=== PATIENT | female | born 1945 | race Caucasian/White ===

== ENCOUNTER 2021-12-12 11:16 | Outpatient (REF) | payer MEDICARE, MEDICAID, SELFPAY ==
--- NOTE | ~2021-12-12 | XR_ITS ---
EXAMINATION: XR ANKLE AND FOOT, LEFT CLINICAL INFORMATION: Sprain of unspecified ligament of left ankle. COMPARISON: None TECHNIQUE: 3 views of the left foot and 3 views of the left ankle. XR/XR foot LT min 3V FINDINGS/IMPRESSION: There is a large Achilles enthesophyte with chronic appearing avulsion at the insertion site on the calcaneal tuberosity. There is some soft tissue swelling surrounding the the enthesophyte. The bones are diffusely demineralized. The ankle mortise does appear intact. There is no joint effusion visualized.
--- NOTE | ~2021-12-12 | XR_ITS ---
EXAMINATION: XR ANKLE AND FOOT, LEFT CLINICAL INFORMATION: Sprain of unspecified ligament of left ankle. COMPARISON: None TECHNIQUE: 3 views of the left foot and 3 views of the left ankle. XR/XR ankle LT 2V FINDINGS/IMPRESSION: There is a large Achilles enthesophyte with chronic appearing avulsion at the insertion site on the calcaneal tuberosity. There is some soft tissue swelling surrounding the the enthesophyte. The bones are diffusely demineralized. The ankle mortise does appear intact. There is no joint effusion visualized.
== END 2021-12-12 11:17 | disposition home or self-care (01) ==
LOC: HO.HMGCX 11:16
PROVIDERS: Visit Provider Internal Medicine
DX: S93.402A Sprain of unspecified ligament of left ankle, initial encounter (principal)
CPT/HCPCS: 73600; 73630

== ENCOUNTER 2022-11-01 21:08 | Emergency (ER) | payer MEDICARE, MEDICAID, SELFPAY ==
--- NOTE | 2022-11-01 | ECG_ITS ---
Test Reason : CHF Blood Pressure : / mmHG Vent. Rate : 080 BPM Atrial Rate : 326 BPM P-R Int : 000 ms QRS Dur : 120 ms QT Int : 432 ms P-R-T Axes : 000 109 -60 degrees QTc Int : 498 ms Artifact in tracing Ventricular-paced rhythm Abnormal ECG When compared with ECG of 19-OCT-2019 12:45, Electronic ventricular pacemaker has replaced Sinus rhythm Referred By: Generic ED Physician Electronically Signed By:YANA WYATT
--- NOTE | ~2022-11-01 | XR_ITS ---
EXAMINATION: XR FOOT, RIGHT CLINICAL INFORMATION: Fracture COMPARISON: None available. TECHNIQUE: AP, lateral, and oblique views of the right foot. FINDINGS: There is diffuse soft tissue swelling involving the right foot, especially on the dorsum. No joint effusion is seen. Flexion deformities are present at the toes. Generalized bony demineralization is seen. No fractures are identified. XR/XR foot RT 2V IMPRESSION: Soft tissue swelling but no fractures are seen.
[2022-11-01 21:24] VITALS: BP 156/74; PULSE 80; RESP 16; O2SAT 97; BMI 25.0
--- NOTE | 2022-11-01 21:36 | ED.EXTPRO ---
HPI - Extremity Problem General Chief complaint: Extremity Injury, Lower Stated complaint: ankle pain Time Seen by Provider: 11/01/22 21:24 Source: patient, family and RN notes reviewed History of Present Illness HPI Narrative: Patient is 76 years old frail 40 kg patient with intellectual disability, dementia, AFib on Eliquis wheelchair-bound staff noticed ecchymosis of the right foot slight pain no fever no known injury Related Data Home Medications Medication Instructions Recorded Confirmed acetaminophen 325 mg tablet 0 mg PO 12/12/21 apixaban 5 mg tablet (Eliquis) 5 mg PO BID 12/12/21 calcium citrate 315 mg 0 tab PO DAILY PRN 12/12/21 calcium-vitamin D3 6.25 mcg (250 unit) tablet famotidine 20 mg tablet 20 mg PO BID 12/12/21 ferrous sulfate 325 mg (65 mg 0 mg PO 12/12/21 iron) tablet (FeroSul) furosemide 20 mg tablet 20 mg PO DAILY 12/12/21 levothyroxine 25 mcg tablet 25 mcg PO DAILY 12/12/21 metoprolol succinate 100 mg 100 mg PO DAILY 12/12/21 tablet,extended release 24 hr omeprazole 20 mg capsule,delayed 20 mg PO DAILY 12/12/21 release sennosides 8.6 mg tablet (senna) 0 mg PO DAILY PRN 12/12/21 Allergies Allergy/AdvReac Type Severity Reaction Status Date / Time lisinopril [From ZESTRIL] Allergy Intermediate LIP Verified 12/12/21 10:50 SWELLING Review of Systems Review of Systems: Yes Unobtainable due to mental status [facility] Past Medical History Medical History (Updated 11/02/22 @ 00:32 by Background Daaaron) 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 Frail patient ENT: Pharynx normal. Oral Mucosa moist Neck: Normal inspection. Neck supple. CVS: Normal heart rate and rhythm. Pulses normal. Respiratory: No respiratory distress. Equal air entry bilateral, Abdomen: Soft and nontender. Bowel sounds are present, Skin: Skin warm and dry. Normal skin color. Normal skin turgor. Extremities: Ecchymosis of the dorsum of the right foot no skin breakdown no signs of infection mild diffuse tenderness Neuro: Alert with dementia limited lower extremity movements Medical Decision Making Medical Decision Making [facility] Narrative: Patient slightly ecchymosis of the right foot x-ray negative fracture discharge patient home Lab Data [facility] Lab Attestation statement: I reviewed the patient's lab results. 11/01/22 21:47 11/01/22 21:47 Labs: Lab Results 11/01/22 11/01/22 11/01/22 Range/Units 21:47 21:47 21:47 WBC 5.9 (4.8-10.8) X10*3/uL RBC 3.67 L (4.20-5.50) X10*6/uL Hgb 12.4 (12.0-16.0) g/dl Hct 36.5 L (37.0-47.0) % MCV 99.5 H (80.0-98.0) fL MCH 33.8 H (27.0-33.0) pg MCHC 34.0 (31.0-35.0) g/dl RDW 13.9 (11.0-16.0) % Plt Count 168 (160-400) X10*3/uL MPV 10.8 (9.4-12.3) fL Immature Gran % (Auto) 0.2 (0.0-0.4) % Neut % (Auto) 67.1 (45-73) % Lymph % (Auto) 13.9 L (20-40) % [place] % (Auto) 16.6 H (2-11) % Eos % (Auto) 1.9 (0-4) % Baso % (Auto) 0.3 (0-2) % Lymph # (Auto) 0.8 L (1.2-4.9) X10*3/uL [place] # (Auto) 1.0 (0.1-1.2) X10*3/uL Eos # (Auto) 0.1 (0.0-0.4) X10*3/uL Baso # (Auto) 0.0 (0.0-0.2) X10*3/uL Abs Immat Gran (auto) 0.01 (0.00-0.03) X10*3/uL Absolute Neuts (auto) 4.0 (2.0-8.3) x10*3/uL Absolute Nucleated RBC 0.000 (0.0-0.012) X10*3/uL Nucleated RBC % (auto) 0.0 (0.0-0.2) /100WBC Sodium 142 (135-145) mmol/L Potassium 4.5 (3.3-5.1) mmol/L Chloride 99 (96-108) mmol/L Carbon Dioxide 30 H (22-29) mmol/L Anion Gap 16 (12-20) BUN 29 H (9-16) mg/dL Creatinine 1.34 (0.5-1.4) mg/dL Estim Creat Clear Calc 16.9 Estimated GFR 39 Random Glucose 224 H (60-115) mg/dL Calcium 9.7 (8.4-10.2) mg/dL Total Bilirubin 1.1 H (0.0-1.0) mg/dL AST 35 H (5-31) U/L ALT 20 (0-31) U/L Alkaline Phosphatase 108 (39-117) U/L Troponin I High Sens 25.0 H (<3.5-17.0) ng/L Total Protein 7.1 (6.5-8.0) g/dL Albumin 4.2 (3.5-5.0) g/dL Discharge Plan Discharge Clinical Impression: Contusion of foot, right Patient Disposition: Home, Self-Care Instructions: Foot Contusion (ED) Additional Instructions: Ecchymosis of right foot likely from contusion no fracture seen in the x-ray Care as advised keep the right foot elevated Prescriptions: No Action calcium citrate-vitamin D3 315 mg-6.25 mcg (250 unit) tablet 0 tab PO DAILY PRN famotidine 20 mg tablet 20 mg PO BID metoprolol succinate 100 mg tablet extended release 24 hr 100 mg PO DAILY omeprazole 20 mg capsule,delayed release(DR/EC) 20 mg PO DAILY levothyroxine 25 mcg tablet 25 mcg PO DAILY acetaminophen 325 mg tablet 0 mg PO sennosides [senna] 8.6 mg tablet 0 mg PO DAILY PRN Eliquis 5 mg tablet 5 mg PO BID furosemide 20 mg tablet 20 mg PO DAILY ferrous sulfate [FeroSul] 325 mg (65 mg iron) tablet 0 mg PO Interventions: ED Discharge Assessment Last Done: 11/01/22 23:31 Discharge Date/Time: 11/01/22 23:33
[2022-11-01 21:54] LABS: MANUAL DIFF FLAG NO
[2022-11-01 22:08] LABS: Basophils Percent Auto 0.3 % (0-2); Eosinophils Absolute Auto 0.1 X10*3/uL (0.0-0.4); Eosinophils Percent Auto 1.9 % (0-4); Hematocrit 36.5 % (37.0-47.0); Hemoglobin 12.4 g/dl (12.0-16.0); Imm Gran Abs Auto 0.01 X10*3/uL (0.00-0.03); Imm Gran Pct Auto 0.2 % (0.0-0.4); Lymphocytes Absolute Auto 0.8 X10*3/uL (1.2-4.9); Lymphocytes Percent Auto 13.9 % (20-40); Mean Corpuscular Hemoglobin 33.8 pg (27.0-33.0); Mean Corpuscular Volume 99.5 fL (80.0-98.0); Mean Platelet Volume 10.8 fL (9.4-12.3); Monocytes Percent Auto 16.6 % (2-11); Neutrophils Percent Auto 67.1 % (45-73); Platelet Count 168 X10*3/uL (160-400); Red Blood Count 3.67 X10*6/uL (4.20-5.50); Red Cell Distribution Width 13.9 % (11.0-16.0); White Blood Count 5.9 X10*3/uL (4.8-10.8)
[2022-11-01 22:46] LABS: Alanine Aminotransferase 20 U/L (0-31); Albumin Level 4.2 g/dL (3.5-5.0); Alkaline Phosphatase 108 U/L (39-117); Aspartate Amino Transferase 35 U/L (5-31); Bilirubin Total 1.1 mg/dL (0.0-1.0); Blood Urea Nitrogen 29 mg/dL (9-16); Calcium 9.7 mg/dL (8.4-10.2); Carbon Dioxide 30 mmol/L (22-29); Chloride 99 mmol/L (96-108); Creatinine Clr Calc Pharmacy 16.9; Estimated Glomerular Filt Rate 39; Glucose Random 224 mg/dL (60-115); Potassium 4.5 mmol/L (3.3-5.1); Sodium 142 mmol/L (135-145); Total Protein 7.1 g/dL (6.5-8.0)
--- NOTE | 2022-11-01 22:58 | PC.NURSE ---
Patient arrived via EMS from [facility] with reports of right ankle bruising, edema and warm. PMH CHF and Afib patient on eliquis and has a pacemaker in place. [facility] staff at bedside. Patient cant recall injury to the area. IV placed in right AC- labs drawn. EKG completed. Call victor with in reach. Will continue to follow plan of care.
[2022-11-01 23:22] LABS: Anion Gap 16 (12-20)
== END 2022-11-01 23:33 | disposition home or self-care (01) ==
PROVIDERS: Emergency Provider Internal Medicine
DX: S90.31XA Contusion of right foot, initial encounter (principal); X58.XXXA Exposure to other specified factors, initial encounter; I48.91 Unspecified atrial fibrillation; Z95.0 Presence of cardiac pacemaker; Z79.01 Long term (current) use of anticoagulants; Z79.899 Other long term (current) drug therapy; Y93.9 Activity, unspecified; Y92.9 Unspecified place or not applicable; Y99.9 Unspecified external cause status
CPT/HCPCS: 36415; 73620; 80053; 84484; 85025; 93005; 99283